=== PATIENT | female | born 1950 | race Caucasian/White ===

== ENCOUNTER → 2021-08-20 11:36 | Outpatient (CLI) | payer OTHER, SELFPAY ==
[2021-08-20 12:35] LABS: Alanine Aminotransferase 36 IU/L (<35); Albumin 4.6 g/dL (3.5-5.0); Albumin Globulin Ratio 1.8 (1.0-2.8); Alkaline Phosphatase 62 U/L (38-126); Aspartate Aminotransferase 73 IU/L (14-36); Bilirubin Total 0.7 mg/dL (0.2-1.3); Bilirubin Unconjugated 0.7 mg/dL (0.0-1.1); Globulin 2.6 g/dL (1.7-4.1); HEMOLYSIS 17 (0-50); Lipase 636 U/L (23-300); Total Protein 7.2 g/dL (6.3-8.2)
[2021-08-20 13:11] LABS: Ferritin 37 ng/mL (11-264)
[2021-08-20 16:23] LABS: Hep C Virus Ab w/Reflex Quant NEGATIVE s/c (NEGATIVE); Hepatitis B Surface Antigen NEGATIVE s/c (NEGATIVE)
[2021-08-22 17:12] LABS: ANA Screen, IFA Positive (.)
[2021-08-23 12:36] LABS: Smooth Muscle Antibody 5 Units (0-19)
== END ==
PROVIDERS: PCP Family Medicine; Referring Provider Internal Medicine Gastroenterology; Visit Provider Internal Medicine Gastroenterology
DX: R63.4 Abnormal weight loss (principal)
CPT/HCPCS: 36415; 80076; 82728; 83516; 83690; 86038; 86803; 87340

== ENCOUNTER → 2021-10-01 09:05 | Outpatient (CLI) | payer OTHER, SELFPAY ==
--- NOTE | 2021-10-01 | DI.US.S_ITS ---
PROCEDURE: US ABDOMEN COMPLETE INDICATIONS: Abnormal weight loss TECHNIQUE: Real-time scanning was performed of the abdominal and retroperitoneal organs, with image documentation. COMPARISON: None. FINDINGS: Liver: Liver is normal in size and homogeneous in echotexture. Gallbladder: Multiple mobile stones are seen in dependent portion of gallbladder lumen measures up to 5 mm in size. No gallbladder wall thickening or pericholecystic fluid. No sonographic Chaidez sign. Biliary ducts: Intrahepatic bile ducts are non-dilated. Extrahepatic bile duct caliber measures 3.6 mm. Normal is 6-7 mm or less in diameter, or 10 mm or less post-cholecystectomy. Pancreas: Visualized portions of the pancreas are sonographically normal. Spleen: Spleen is normal in size and homogeneous in echotexture. Kidneys: Kidneys are normal in size and echotexture. Right kidney measures 8.4 cm long; left kidney measures 8.2 cm long. No hydronephrosis or nephrolithiasis. No solid masses. Aorta: Visualized aorta is normal in caliber at less than 3 cm. Iliacs: Proximal common iliac arteries are normal in caliber at less than 2.5 cm. IVC: Intrahepatic inferior vena cava is patent. Miscellaneous: No free abdominal fluid. IMPRESSION: Cholelithiasis without sonographic evidence of cholecystitis. No biliary ductal dilatation. Rest of the exam is unremarkable. Dictated by: Jass Hsieh M.D. on 10/01/2021 at 11:07 Approved by: Jass Hsieh M.D. on 10/01/2021 at 11:08
== END ==
PROVIDERS: PCP Family Medicine; Referring Provider Internal Medicine Gastroenterology; Visit Provider Internal Medicine Gastroenterology
DX: R63.4 Abnormal weight loss (principal); R19.7 Diarrhea, unspecified; K80.20 Calculus of gallbladder without cholecystitis without obstruction
CPT/HCPCS: 76700

== ENCOUNTER 2023-10-13 10:10 | Emergency (ER) | payer OTHER, SELFPAY ==
[2023-10-13 10:29] VITALS: BP 187/79; PULSE 79; RESP 18; TEMP 36.2; O2SAT 98; BMI 18.5
[2023-10-13 11:23] VITALS: BP 131/58; PULSE 74; TEMP 36.4; O2SAT 99
--- NOTE | 2023-10-13 11:31 | ED.RECABL ---
HPI - Recheck/Abnormal Lab/Rx <Glenna Zamorano PA-C - Last Filed: 10/13/23 13:38> General Chief Complaint: Recheck/Abnormal Lab/Rx Stated Complaint: Chocking episodes Time Seen by Provider: 10/13/23 11:15 Source: family Mode of arrival: Family Vehicle History of Present Illness HPI narrative: 73yo female brought in by her (primary patient care associate) for difficulty swallowing. She is a [facility] patient seen at [facility] and resides in [place]. She has an underlying severe, neurocognitive disorder with known dysphagia for approximately 2 years. Worsening over the last 2 months. Her last Barium swallow study was 01/14/2023. Speech pathology eval as well. This morning, she was trying to eat/swallow oatmeal and had a short choking episode per her and it resolved. His main concern is for possible aspiration pneumonia. History significant for total thyroidectomy 2 years ago. Currently on thyroid replacement. He phoned her PCP this morning who discontinued the Seroquel due to possible rare side effects in swallowing ability and asked her to be seen in ED. She is denying any pain, cough, wheezing, difficulty breathing, nausea, vomiting, or sensation of foreign body in throat, neck or chest. No treatment tried. No history of GERD or current heart burn symptoms. No history of CVA or TIA. Denies CP. other systems reviewed and are negative. Related Data Home Medications Medication Instructions Recorded Confirmed levothyroxine 88 mcg tablet 88 mcg PO DAILY 10/13/23 10/13/23 olanzapine 2.5 mg tablet 2.5 mg PO ONCE PM 10/13/23 10/13/23 Previous Rx's Medication Instructions Recorded amoxicillin 875 mg-potassium 1 tab PO Q12H #20 tabs 10/13/23 clavulanate 125 mg tablet Allergies Allergy/AdvReac Type Severity Reaction Status Date / Time morphine AdvReac Agitated Verified 10/13/23 10:42 Review of Systems <Glenna Zamorano PA-C - Last Filed: 10/13/23 13:38> Review of Systems Narrative: SEE HPI. All other systems reviewed and are negative. Patient History <Glenna Zamorano PA-C - Last Filed: 10/13/23 13:38> Social History Smoking Status: Never smoker Smoking Status: Never smoker alcohol intake frequency: 0-2 drinks per day Substance Use Type: does not use Exam <Glenna Zamorano PA-C - Last Filed: 10/13/23 13:38> Initial Vital Signs Initial Vital Signs: Vital Signs Temperature 97.1 F L 10/13/23 10:29 Pulse Rate 79 10/13/23 10:29 Respiratory Rate 18 10/13/23 10:29 Blood Pressure 187/79 H 10/13/23 10:29 Pulse Oximetry 98 10/13/23 10:29 Oxygen Delivery Method Room Air 10/13/23 10:29 Reviewed and are normal except for elevated BP reading. Rechecked at 131/58. Const General: cooperative, healthy appearing, comfortable, well developed, well groomed, No acute distress, No in distress, No anxious, No combative, No diaphoretic, No ill appearing and well hydrated [facility] Head: normal to inspection, normocephalic and atraumatic Ears: external ears normal, TM's normal bilaterally, EAC's normal, mastoids normal and no periauricular adenopathy Nose: external nose normal, nares normal, nasal mucous membranes and turbinates normal, septum normal and No foreign body in naris Face and sinus: normal facial exam, sinuses nontender, face symmetric and no sinus tenderness Mouth: oral mucosae normal, lip normal, tongue normal, oropharynx normal, moist mucous membranes, No audible dysphonia, No drooling, No malodorous breath, No mouth trauma, No muffled voice and No trismus Teeth and gingiva: dentition normal and gingiva normal Throat: posterior oropharynx normal, tonsils normal, uvula midline, normal posterior oropharynx, no postnasal drainage, uvula not displaced and no uvular edema [facility] Other: Tonsillar tissue is minimal versus surgically absent. Eyes General: Yes appearance normal, both eyes and all related structures Pupils: PERRL Neck Neck: normal visual inspection, full ROM, trachea midline, supple, No anterior neck swelling and No lymphadenopathy Thyroid: other (surgically absent, post-op scar) Carotids: normal carotid upstroke and no bruits Lymphatic: No lymphedema and No lymphadenopathy Chest Chest: normal inspection of the chest Resp Effort & Inspection: normal respiratory effort, able to speak in complete sentences, normal respiratory pattern, no audible wheezes and no cough Auscultation: clear to auscultation bilaterally, no crackles, lung sounds not diminished, no rales, no rhonchi and no wheezes Cardio Palpation: normal PMI Rate: regular rate Rhythm: regular rhythm Heart Sounds: S1 normal and S2 normal GI Inspection: normal to inspection and no edema Palpation: soft and no hepatosplenomegaly Percussion: normal to percussion Auscultation: normal bowel sounds Skin General: no rashes or lesions noted Neuro General: patient alert, patient awake, moves all extremities, no focal motor deficits and CN's II-XI intact bilaterally Psych Appearance: grossly normal and well kempt Mental Status: other (Alert to name, location, and ) Mood: other (Alert to name, location, and ) Affect: normal affect, No sad, No anxious affect, No hostile and No irritable affect <Telma Wilde DO - Last Filed: 10/14/23 13:44> Initial Vital Signs Initial Vital Signs: Vital Signs Temperature 97.1 F L 10/13/23 10:29 Pulse Rate 79 10/13/23 10:29 Respiratory Rate 18 10/13/23 10:29 Blood Pressure 187/79 H 10/13/23 10:29 Pulse Oximetry 98 10/13/23 10:29 Oxygen Delivery Method Room Air 10/13/23 10:29 Course <Glenna Zamorano PA-C - Last Filed: 10/13/23 13:38> Orders Ordered: ED Orders 10/13/23 10:41 Consult to [facility] Senior System Operator Stat 10/13/23 11:55 XR chest 2V Stat XR soft tissue neck Stat Consultations Consultation #1: In-house social worker palliative care Jose visited patient and in exam room. Vital Signs Vital signs: Vital Signs - 8 hr 10/13/23 10:29 10/13/23 11:23 Temperature 97.1 F L 97.5 F L Pulse Rate 79 74 Respiratory Rate 18 Blood Pressure 187/79 H 131/58 L Pulse Oximetry 98 99 Oxygen Delivery Method Room Air Room Air <Telma Wilde DO - Last Filed: 10/14/23 13:44> Orders Ordered: ED Orders 10/13/23 10:41 Consult to [facility] Senior System Operator Stat 10/13/23 11:55 XR chest 2V Stat XR soft tissue neck Stat Vital Signs Vital signs: Vital Signs - 8 hr 10/13/23 10:29 10/13/23 11:23 Temperature 97.1 F L 97.5 F L Pulse Rate 79 74 Respiratory Rate 18 Blood Pressure 187/79 H 131/58 L Pulse Oximetry 98 99 Oxygen Delivery Method Room Air Room Air MDM - Recheck/Abnormal Lab/Rx <Glenna Zamorano PA-C - Last Filed: 10/13/23 13:38> Medical Records Medical records narrative: [facility] records unavailable. Lab Data Lab results narrative: Afebrile with normal VS. Labwork not performed. Imaging Data Chest x-ray: My Impression: Patient is clinically asymptomatic. Based on history, will treat for aspiration pneumonia. Radiologist's Impression: PROCEDURE: XR CHEST 2V INDICATIONS: possible aspiration of food this morning TECHNIQUE: 2 views of the chest were acquired. COMPARISON: None. FINDINGS: Surgical changes and devices: Numerous surgical clips in the thyroid fossa. Lungs and pleura: Focal opacity in the right lung base. Lungs hyperinflated suggesting COPD. No pleural effusions or pneumothorax. Mediastinum: Mediastinal contours are normal. Heart size is normal. Bones and chest wall: No suspicious bony abnormalities. Convex right thoracolumbar spine scoliosis. Soft tissues appear unremarkable. IMPRESSION: Right basilar atelectasis, aspiration or pneumonia. Dictated by: Sammie Medina MD, PhD on 10/13/2023 at 13:08 Approved by: Sammie Medina MD, PhD on 10/13/2023 at 13:10 XR soft tissue neck: Radiologist's Impression: PROCEDURE: XR SOFT TISSUE NECK INDICATIONS: hx of dysphagia and choking episode in a.m. TECHNIQUE: 2 views of the neck were acquired. COMPARISON: None. FINDINGS: Airway: The airway appears patent. Soft tissues: Prevertebral soft tissues are normal in thickness. The epiglottis and aryepiglottic folds appear normal. No soft tissue gas. Numerous surgical clips in the thyroid fossa. Bones: No suspicious bony lesions. Visualized cervical spine is normally aligned. IMPRESSION: No acute abnormality. Dictated by: Sammie Medina MD, PhD on 10/13/2023 at 13:10 Approved by: Sammie Medina MD, PhD on 10/13/2023 at 13:10 Treatment and disposition Shared decision making:: child and family services worker consulted, along with ED attending. agrees to discharge plan with re-involvement of [facility] PCP Dr. Gonzales. [facility] Narrative Medical decision making narrative: 73 yo female with 2 year history of dysphagia due to neurocognitive disorder, ongoing for 2 years. Followed by [place]. Chest X-ray to exclude aspiration pneumonia, soft tissue neck to exclude acute obstruction. She is well appearing and in no distress. Her PCP dc'd her Seroquel due to potential side effects in swallowing effectively. spoke at length with Jose, our in-house social worker palliative care. They discussed looking at longer term placement at some point. I recommend the patient returns to her [place] PCP, likely repeat the Barium swallow study as it has been 9 months with an interval change with increased breakfast episodes only. Reviewed their current dietary plan from speech pathology that indicates a nectar thick/mechanical diet. Oatmeal may be too textured at this point with dryness or oat fragments. I would discontinue. Red flag warning signs reviewed in detail. Return to ED if any concerning symptoms, coughing, wheezing, fever, difficulty breathing, anxiety or other concerns. Discharge Plan Departure Patient Disposition: Home Clinical Impression: Aspiration pneumonia due to food (regurgitated) Qualifiers: Laterality: right Lung location: lower lobe of lung Qualified Code(s): J69.0 - Pneumonitis due to inhalation of food and vomit Dysphagia Qualifiers: Dysphagia type: other dysphagia Qualified Code(s): R13.19 - Other dysphagia Instructions: DI for Aspiration Pneumonia, Esophageal Dysphagia Activity Restrictions/Additional Instructions: Please contact your [facility] PCP and schedule follow-up. Radiographs performed showed possible aspiration pneumonia in the right lower lung base. I have prescribed Augmentin antibiotic for 10 days. Will likely need repeat XR for resolution/follow-up. I recommend repeat swallow study and/or speech pathology re-evaluation to see if dietary changes need to be made to your current: nectar-thick/mechanical diet. I would discontinue oatmeal as this may be too dry, too textured with oat flakes/fragments. Episodes seem to correspond with the breakfast meal. Substitution is highly recommended. Please return to ER if any concerning symptoms such as wheezing, coughing, drooling, vomiting, fever, difficulty breathing or other concerns. Prescriptions: New amoxicillin-pot clavulanate 875-125 mg tablet 1 tab PO Q12H Qty: 20 0RF No Action levothyroxine 88 mcg tablet 88 mcg PO DAILY olanzapine 2.5 mg tablet 2.5 mg PO ONCE PM Patient Comments: has not started. Referrals: Joanne Hwang MD [Primary Care Provider] - Stand Alone Forms: Patient Portal/API ED Sign-out <Telma Wilde, - Last Filed: 10/14/23 13:44> Cosign ED Attending Raymon Attestation: I was immediately available in the department for consultation. Case discussed with myself, well-appearing patient with overall appropriate vitals little hypertensive no signs of sepsis. Patient does have what appears to be pneumonia possibly aspiration, has reportedly had aspiration workup with swallow studies as outpatient in the past. Recommend follow up with primary care and return precautions.
--- NOTE | 2023-10-13 11:54 | PC.NURSE ---
Pt denies pain or nausea. Lung sounds clear all quadrants bilaterally. Spouse denies history of aspiration pneumonia.
--- NOTE | 2023-10-13 11:55 | DI.RAD.S_ITS ---
PROCEDURE: XR CHEST 2V INDICATIONS: possible aspiration of food this morning TECHNIQUE: 2 views of the chest were acquired. COMPARISON: None. FINDINGS: Surgical changes and devices: Numerous surgical clips in the thyroid fossa. Lungs and pleura: Focal opacity in the right lung base. Lungs hyperinflated suggesting COPD. No pleural effusions or pneumothorax. Mediastinum: Mediastinal contours are normal. Heart size is normal. Bones and chest wall: No suspicious bony abnormalities. Convex right thoracolumbar spine scoliosis. Soft tissues appear unremarkable. IMPRESSION: Right basilar atelectasis, aspiration or pneumonia. Dictated by: Sammie Medina MD, PhD on 10/13/2023 at 13:08 Approved by: Sammie Medina MD, PhD on 10/13/2023 at 13:10
--- NOTE | 2023-10-13 11:55 | DI.RAD.S_ITS ---
PROCEDURE: XR SOFT TISSUE NECK INDICATIONS: hx of dysphagia and choking episode in a.m. TECHNIQUE: 2 views of the neck were acquired. COMPARISON: None. FINDINGS: Airway: The airway appears patent. Soft tissues: Prevertebral soft tissues are normal in thickness. The epiglottis and aryepiglottic folds appear normal. No soft tissue gas. Numerous surgical clips in the thyroid fossa. Bones: No suspicious bony lesions. Visualized cervical spine is normally aligned. IMPRESSION: No acute abnormality. Dictated by: Sammie Medina MD, PhD on 10/13/2023 at 13:10 Approved by: Sammie Medina MD, PhD on 10/13/2023 at 13:10
--- NOTE | 2023-10-13 12:49 | CM.SWNOTE ---
ED DIRECTOR PAID MEDIA Note Pt is a 73 y/o female who presents to the ED due to concerns for increased choking episodes . Pt has a hx of a neurocognitive disorder. Pt's requested to speak to DIRECTOR PAID MEDIA. DIRECTOR PAID MEDIA entered the room and the pt was seated w/ her Delvis by her side. Pt's expressed concern for safety at home and informed DIRECTOR PAID MEDIA that her doctor has concerns for safety at home due to her ongoing choking episodes. Her reported that during a telehealth appointment the Pt's PCP noticed pt and heard her choking and requested that she go to the ED. reported that the pt has lost around 85% of her short term memory. 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 Pt had been receiving that care through a contractor known as [employer]. It was reported that the contractor went out of business and they then converted their caregiver hours to a adult day care in [place]. Pt's reports that pt did nto do well in that environment and that even the caregiver was less helpful as the pt needs mreo medical support especially around meal times. Pt's needs have become a financial barrier for the couple. reports he has been taking more time off throughout the day to drive her around and help calm her down. 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 It has been the recommendation of the PCP that placement is necessary and that safety is th e threshold for no longer being able to live at home. had been working w/ [employer] to find placement and receive assistance. reproted tehy were approved for assitance 2 mnoths ago but they decided it was not the right time. DIRECTOR PAID MEDIA discussed options such as home health, SNF, and caregivers. It was determined that something more specific would be necessary that home health and caregivers. DIRECTOR PAID MEDIA spoke w/ ED provider who does not see SNF as an option. Pt and have been in contact w/ [employer] but there is not a caregiver option through them at the moment. Plan: Pt to be evaluated further medically. DIRECTOR PAID MEDIA to provide pt w/ senior resource guide and caregiver resources and encourage to contact [facility] to restart the process. ERASTO Ford, KAMILLA
--- NOTE | 2023-10-13 13:13 | PC.NURSE ---
Pt walked out of room with her following after. I asked how I can help her, she states I know you have food here, I'm going to go get food. Pt redirected back into her room and informed we cannot have food until tests come back. Pt agreeable after explanation.
--- NOTE | 2023-10-13 13:20 | PC.NURSE ---
Pt able to complete swallow screen with no difficulty. Pt immediately eating apple sauce spoon after spoon. Pt encouraged to take it slowly.
[2023-10-13 13:50] VITALS: BP 154/88; PULSE 87; RESP 16; O2SAT 98
== END 2023-10-13 13:54 | disposition home or self-care (01) ==
PROVIDERS: Emergency Provider Physician Assistant Medical; PCP Family Medicine
DX: J69.0 Pneumonitis due to inhalation of food and vomit (principal); R13.19 Other dysphagia
CPT/HCPCS: 70360; 71046; 99283

== ENCOUNTER 2024-04-17 12:30 | Emergency (ER) | payer OTHER, SELFPAY ==
[2024-04-17 12:38] VITALS: PULSE 91; O2SAT 97
[2024-04-17 12:40] VITALS: BP 150/69; PULSE 90; RESP 18; TEMP 36.3; O2SAT 96; BMI 17.4
--- NOTE | 2024-04-17 12:41 | ED.URI ---
HPI - URI/Sore Throat General Chief Complaint: Upper Respiratory Symptoms Stated Complaint: suspected aspiration pneumonia per pt Time Seen by Provider: 04/17/24 12:33 History of Present Illness HPI Narrative: 73-year-old female with history of dementia presents for evaluation of possible aspiration. History obtained from at bedside. Has been states that for the last 4 days patient was had a wet sounding cough. He was concerned that the patient may have aspirated and needs antibiotics. Patient states she has no complaints and has no pain. Related Data Home Medications Medication Instructions Recorded Confirmed levothyroxine 88 mcg tablet 88 mcg PO DAILY 10/13/23 10/13/23 olanzapine 2.5 mg tablet 2.5 mg PO ONCE PM 10/13/23 10/13/23 Previous Rx's Medication Instructions Recorded amoxicillin 875 mg-potassium 1 tab PO Q12H #20 tabs 10/13/23 clavulanate 125 mg tablet Allergies Allergy/AdvReac Type Severity Reaction Status Date / Time morphine AdvReac Agitated Verified 04/17/24 12:47 Patient History Social History Smoking Status: Never smoker Smoking Status: Never smoker alcohol intake frequency: 0-2 drinks per day Substance Use Type: does not use Exam Initial Vital Signs Initial Vital Signs: Vital Signs Temperature 97.4 F L 04/17/24 12:40 Pulse Rate 90 04/17/24 12:40 Respiratory Rate 18 04/17/24 12:40 Blood Pressure 150/69 H 04/17/24 12:40 Pulse Oximetry 96 04/17/24 12:40 Oxygen Delivery Method Room Air 04/17/24 12:40 Const: Awake, alert, no acute distress, nontoxic appearing Cardiac: regular rate, regular rhythm RESP: unlabored, clear bilaterally, no wheezing Skin: Warm, Dry, intact, no rashes Neuro: AO x2, CN II-XII grossly intact, moves all extremities Course Orders Ordered: ED Orders 04/17/24 12:40 Chest [XR chest 2V] Stat Vital Signs Vital signs: Vital Signs - 8 hr 04/17/24 12:40 Temperature 97.4 F L Pulse Rate 90 Respiratory Rate 18 Blood Pressure 150/69 H Pulse Oximetry 96 Oxygen Delivery Method Room Air MDM - URI/Sore Throat Differential Diagnosis Differential diagnosis: Likely upper respiratory infection, viral infection and bronchitis Imaging Data Chest x-ray: Radiologist's Impression: PROCEDURE: XR CHEST 2V INDICATIONS: COUGH X4 DAYS, HX ASPIRATION TECHNIQUE: 2 views of the chest were acquired. COMPARISON: [facility], CR, XR CHEST 2V, 10/13/2023, 11:55. FINDINGS: Surgical changes and devices: Surgical clips in the midline lower neck. Lungs and pleura: Minimal streaky right basilar opacities without dense consolidation. No pneumothorax or pleural effusion. Mediastinum: Mediastinal contours are normal. Heart size is normal. Bones and chest wall: No suspicious bony abnormalities. Soft tissues appear unremarkable. Diffuse osteopenia. Age-appropriate degenerative changes of the thoracic spine. IMPRESSION: Minimal streaky right basilar opacities likely representing atelectasis. No dense consolidation seen. Otherwise, no acute cardiopulmonary abnormalities. Dictated by: Werner Patterson M.D. on 04/17/2024 at 12:53 Approved by: Werner Patterson M.D. on 04/17/2024 at 12:54 MDM Narrative Medical decision making narrative: Four days of cough, concerned about aspiration. Physical exam is unremarkable, no rales or rhonchi auscultated on pulmonary exam. Two-view chest x-ray negative for signs of aspiration. This correlates with normal physical exam and normal vitals. counseled on results of x-ray imaging. He states that they have an appointment with the patient's primary care doctor in several days and will discuss further with her doctor. ED return precautions discussed at bedside. Discharge Plan Departure Patient Disposition: Home Clinical Impression: Cough Instructions: DI for Cough -- Adult Activity Restrictions/Additional Instructions: Your two-view chest x-ray today was normal. There is no sign of aspiration on your exam or on your x-rays. Follow up as scheduled with your primary care doctor. Prescriptions: No Action levothyroxine 88 mcg tablet 88 mcg PO DAILY olanzapine 2.5 mg tablet 2.5 mg PO ONCE PM Patient Comments: has not started. amoxicillin-pot clavulanate 875-125 mg tablet 1 tab PO Q12H Qty: 20 0RF Referrals: Joanne Hwang MD [Primary Care Provider] - Stand Alone Forms: Patient Portal/API
[2024-04-17 13:00] VITALS: PULSE 82; O2SAT 96
[2024-04-17 14:06] VITALS: PULSE 84; O2SAT 96
[2024-04-17 14:07] VITALS: BP 137/69; PULSE 84; RESP 18; O2SAT 96
== END 2024-04-17 14:04 | disposition home or self-care (01) ==
PROVIDERS: Emergency Provider Emergency Medicine; PCP Family Medicine
DX: R05.9 Cough, unspecified (principal); F03.90 Unspecified dementia, unspecified severity, without behavioral disturbance, psychotic disturbance, mood disturbance, and anxiety
CPT/HCPCS: 71046; 99281; 99283